=== PATIENT | male | born 1945 | race Caucasian/White ===

== ENCOUNTER 2019-07-21 10:03 | Emergency (ER) | payer MEDICARE, SELFPAY ==
[2019-07-21 10:05] VITALS: BP 145/113; PULSE 55; RESP 18; TEMP 36.6; O2SAT 99
[2019-07-21] MEDS: PROPARACAINE 0.5% OPHTH SOL 1 DROPS EYE-LEFT (10:11)
[2019-07-21] MEDS: FLUORESCEIN 1 MG STRIP EYE-LEFT (10:16)
--- NOTE | 2019-07-21 10:28 | ED.EYEPROB ---
HPI - Eye Problem General Chief complaint: Eye Problems Stated complaint: LT EYE CANT OPEN Time Seen by Provider: 07/21/19 10:08 Source: patient Mode of arrival: Ambulatory Limitations: no limitations History of Present Illness HPI Narrative: Patient is a 74-year-old male who presents with left eye pain. He says he woke up this morning and had intense pain and can open his eye feels like something is in it. It was not crusted over he denies any visual changes. He has since had proparacaine in his left eye by nursing staff and it has dramatically improved. He denies any crusting over her symptoms last night chief complaint: eye pain and eye redness Onset (ago): minute(s) Onset description: sudden Duration: constant Location: left eye Eye Symptoms: pain and foreign body sensation Related Data Home Medications Medication Instructions Recorded Confirmed atorvastatin 10 mg PO BEDTIME 07/21/19 07/21/19 levothyroxine 50 mcg PO QAM 07/21/19 07/21/19 losartan-hydrochlorothiazide 1 tab PO QAM 07/21/19 07/21/19 Previous Rx's Medication Instructions Recorded polymyxin B sulf-trimethoprim 1 drop EYE-LEFT Q4HRWA 7 Days #10 07/21/19 ml Allergies Allergy/AdvReac Type Severity Reaction Status Date / Time No Known Drug Allergies Allergy Verified 07/21/19 10:15 Review of Systems Review of Systems Narrative: GENERAL: Denies chills,fever HEENT: See HPI RESPIRATORY: Denies dyspnea, cough, wheezing CARDIOVASCULAR: Denies chest pain, palpitations GASTROINTESTINAL: Denies nausea, vomiting MUSCULOSKELETAL: Denies extremity pain, injury SKIN: No rash, no laceration, no pruritus NEUROLOGIC: Denies weakness, dizziness, headache, numbness 8 point review of systems is negative except for those stated above and HPI Patient History Medical History High cholesterol (Acute) Hypertension (Acute) Hypothyroid (Acute) Social History Smoking Status: Former smoker Smoking Status: Former smoker alcohol intake frequency: 0-2 drinks per day Substance Use Type: does not use Exam Initial Vital Signs Initial Vital Signs: Vital Signs Temperature 97.8 F 07/21/19 10:05 Pulse Rate 55 L 07/21/19 10:05 Respiratory Rate 18 07/21/19 10:05 Blood Pressure 145/113 H 07/21/19 10:05 Pulse Oximetry 99 07/21/19 10:05 GENERAL: Well-appearing, well-nourished and in no acute distress. CARDIOVASCULAR: peripheral pulses in tact, cap refill <2 sec RESPIRATORY: No respiratory distress, speaks in full sentences without difficulty EXTREMITIES: Normal range of motion, no clubbing or edema. Neurovascularly intact NEUROLOGICAL: Cranial nerves II through XII grossly intact. Normal gait and speech. SKIN: Warm, dry, no petechiae, no rashes or lesions. Eyes Eyelids: eyelids normal Conjunctivae: conjunctivae normal Sclera: scleral abnormality left scleral injection diffuse Cornea: fluorescein used (No dye uptake) Course Orders Ordered: Discontinued Medications Fluorescein Sodium (Ful-Melany) 1 mg EYE-LEFT NOW ONE Stop: 07/21/19 10:14 Last Admin: 07/21/19 10:16 Dose: 1 mg Documented by: MEISENB Proparacaine HCl (Parcaine 0.5% Ophth Mimi) 1 drops EYE-LEFT NOW ONE Stop: 07/21/19 10:09 Last Admin: 07/21/19 10:11 Dose: 1 drop Documented by: MANDO Vital Signs Vital signs: Vital Signs - 8 hr 07/21/19 10:05 07/21/19 10:53 Temperature 97.8 F Pulse Rate 55 L 53 L Respiratory Rate 18 18 Blood Pressure 145/113 H Blood Pressure [Left Arm] 141/69 H Pulse Oximetry 99 93 MDM - Eye Problem MDM Narrative Medical decision making narrative: Eye was flushed with saline. No obvious foreign body noted no corneal abrasion. At this time will treat for conjunctivitis recommend Tylenol ibuprofen as needed for pain Discharge Plan Departure Patient Disposition: Home Clinical Impression: Acute conjunctivitis, left eye Qualifiers: Acute conjunctivitis type: unspecified Qualified Code(s): H10.32 - Unspecified acute conjunctivitis, left eye Discharge Date/Time: 07/21/19 11:32 Instructions: DI for Conjunctivitis Activity Restrictions/Additional Instructions: *You have been diagnosed with left eye conjunctivitis *What to do: At this time no foreign body is noted in the eye. Will treat you for infection at this time *Continue to take medications as directed Polymyxin drops *Follow up with your primary care provider in 2-3 days [and follow up with ortho, urology etc] *Return to ER if you should have [such as] [or] any new, worsening or concerning symptoms Prescriptions: New polymyxin B sulf-trimethoprim 10,000 unit- 1 mg/mL drops 1 drop EYE-LEFT Q4HRWA 7 Days Qty: 10 RF: 0 No Action atorvastatin 10 mg tablet 10 mg PO BEDTIME RF: 0 levothyroxine 50 mcg tablet 50 mcg PO QAM RF: 0 losartan-hydrochlorothiazide 50-12.5 mg tablet 1 tab PO QAM RF: 0
[2019-07-21 10:53] VITALS: BP 141/69; PULSE 53; RESP 18; O2SAT 93
== END 2019-07-21 11:32 | disposition home or self-care (01) ==
PROVIDERS: Emergency Provider Emergency Medicine
DX: H10.32 Unspecified acute conjunctivitis, left eye (principal)
CPT/HCPCS: 99283

== ENCOUNTER → 2019-11-22 10:23 | Outpatient (CLI) | payer MEDICARE, SELFPAY ==
[2019-11-22 11:56] LABS: Aspartate Aminotransferase 21 IU/L (17-59); BUN Creatinine Ratio 17.2 (6-22); Blood Urea Nitrogen 17 mg/dL (9-20); Carbon Dioxide 30 mmol/L (22-32); Chloride 102 mmol/L (98-107); Cholesterol 156 mg/dL (140-199); Estimated Glomerular Filt Rate > 60.0 mL/min (>60); Glucose 97 mg/dL (80-110); HDL Cholesterol 39 mg/dL (40-60); HEMOLYSIS < 15 (0-50); LDL Cholesterol Calculated 85 mg/dL (<100); Potassium 3.8 mmol/L (3.4-5.1); Sodium 138 mmol/L (137-145); Triglycerides 160 mg/dL (35-150)
[2019-11-22 12:20] LABS: TSH w/ Reflex to FT4 2.17 uIU/mL (0.47-4.68)
[2019-11-22 12:25] LABS: Prostate Specific Antigen Scrn < 0.064 ng/mL (0.1-4.0)
== END ==
PROVIDERS: PCP Internal Medicine; Referring Provider Internal Medicine; Visit Provider Internal Medicine
DX: I10 Essential (primary) hypertension (principal); E78.2 Mixed hyperlipidemia; E03.9 Hypothyroidism, unspecified; C61 Malignant neoplasm of prostate; Z12.5 Encounter for screening for malignant neoplasm of prostate
CPT/HCPCS: 36415; 80048; 80061; 84443; 84450; G0103

== ENCOUNTER → 2020-04-18 13:49 | Outpatient (CLI) | payer MEDICARE, SELFPAY ==
[2020-04-20 02:07] LABS: COVID19 Sendout Not Detected (Not Detect)
== END ==
PROVIDERS: PCP Internal Medicine; Visit Provider Student in an Organized Health Care Education/Training Program
DX: Z11.59 Encounter for screening for other viral diseases (principal)
CPT/HCPCS: 87635

== ENCOUNTER → 2020-11-17 18:40 | Outpatient (ROUT) | payer MEDICARE, SELFPAY ==
[2020-11-17 19:29] LABS: HEMOLYSIS < 15 (0-50); Potassium 3.8 mmol/L (3.4-5.1)
[2020-11-17 19:30] LABS: Aspartate Aminotransferase 26 IU/L (17-59); BUN Creatinine Ratio 16.7 (6-22); Blood Urea Nitrogen 17 mg/dL (9-20); Calcium 9.7 mg/dL (8.4-10.2); Carbon Dioxide 29 mmol/L (22-32); Chloride 102 mmol/L (98-107); Cholesterol 189 mg/dL (140-199); Estimated Glomerular Filt Rate > 60.0 mL/min (>60); Glucose 81 mg/dL (80-110); HDL Cholesterol 51 mg/dL (40-60); LDL Cholesterol Calculated 92 mg/dL (<100); Sodium 137 mmol/L (137-145); Triglycerides 232 mg/dL (35-150)
[2020-11-17 20:03] LABS: Prostate Specific Antigen < 0.064 ng/mL (0.10-4.00)
[2020-11-19 04:14] LABS: Testosterone 446 ng/dL (71.8-623)
== END ==
PROVIDERS: PCP Internal Medicine; Visit Provider Internal Medicine
DX: E29.1 Testicular hypofunction (principal); I10 Essential (primary) hypertension; E78.2 Mixed hyperlipidemia; Z85.46 Personal history of malignant neoplasm of prostate
CPT/HCPCS: 80048; 80061; 84153; 84403; 84450

== ENCOUNTER → 2022-02-18 06:36 | Outpatient (CLI) | payer OTHER, SELFPAY ==
--- NOTE | 2022-02-18 | DI.US.S_ITS ---
PROCEDURE: US ABD AORTA ANEURYSM SCREEN INDICATIONS: FORMER SMOKER/SCREENING TECHNIQUE: Real time scanning was performed of the aorta and iliac arteries, with image documentation. COMPARISON: None. FINDINGS: Aorta: Proximal aortic diameter measures 1.5 x 1.7 cm. Mid-aorta measures 1.6 x 1.9 cm. Distal aortic diameter is 1.7 x 1.8 cm. Iliac arteries: Right common iliac artery measures 1.3 x 0.9 cm. Left common iliac artery measures 0.9 x 1.1 cm. IMPRESSION: Normal caliber abdominal aorta and iliac arteries. Dictated by: Kvng Cuellar M.D. on 02/18/2022 at 8:36 Approved by: Kvng Cuellar M.D. on 02/18/2022 at 8:39
== END ==
PROVIDERS: PCP Internal Medicine; Referring Provider Internal Medicine; Visit Provider Internal Medicine
DX: Z13.6 Encounter for screening for cardiovascular disorders (principal); Z87.891 Personal history of nicotine dependence
CPT/HCPCS: 76706

== ENCOUNTER → 2023-03-07 08:44 | Outpatient (CLI) | payer OTHER, SELFPAY ==
--- NOTE | 2023-03-07 | DI.US.S_ITS ---
PROCEDURE: US ABDOMEN LIMITED INDICATIONS: LEFT GROIN PROTRUSION TECHNIQUE: Left inguinal soft tissue ultrasound was obtained COMPARISON: None. FINDINGS: At the area of concern, there is a left inguinal hernia arising from a 1.2 cm fascial defect. Hernia contains bowel seen bowel, and the hernia sac measures overall 6.7 x 2.0 x 5.8 cm. IMPRESSION: Large right inguinal hernia containing peristalsing bowel Approved by: Raji Marin M.D. on 03/07/2023 at 18:27
== END ==
PROVIDERS: PCP Student in an Organized Health Care Education/Training Program; Referring Provider Student in an Organized Health Care Education/Training Program; Visit Provider Student in an Organized Health Care Education/Training Program
DX: K40.90 Unilateral inguinal hernia, without obstruction or gangrene, not specified as recurrent (principal); R19.09 Other intra-abdominal and pelvic swelling, mass and lump
CPT/HCPCS: 76705

== ENCOUNTER 2023-03-28 11:10 | Day surgery (SDC) | payer OTHER, SELFPAY ==
[2023-03-21 13:23] VITALS: BMI 29.4
[2023-03-28 11:42] VITALS: BMI 28.7
[2023-03-28 11:47] VITALS: BP 174/76; PULSE 95; RESP 16; TEMP 36.7; O2SAT 95
[2023-03-28] MEDS: LACTATED RINGERS 1,000 ML 42 ML IV ×2 (11:50→14:37)
--- NOTE | 2023-03-28 13:11 | PM.PREOP ---
Pre-operative Note COVID-19 COVID-19 status: Not tested Interval Note History & Physical reviewed/Exam performed by Physician: Yes Changes to H&P: No ASA Class (for procedural sedation): II
[2023-03-28] MEDS: CEFAZOLIN 2 GM/100 ML PREMIX 100 ML IV (13:44)
--- NOTE | 2023-03-28 13:55 | SUR.OPER ---
Supine on padded OR bed, head on pillow, arms secured on padded arm boards at <90 degrees abduction, legs uncrossed, safety belt at thigh, tape over blanket over lower legs.
[2023-03-28] MEDS: BUPIVACAINE 0.5% (PF) 30 ML, EPINEPHrine 0.15 MG INJ (14:00)
--- NOTE | 2023-03-28 14:56 | PM.OP.1 ---
Operative Date/Time/Diagnoses Date of procedure: 03/28/23 Time of procedure: 14:56 Pre-op diagnosis: Left inguinal hernia Post-op diagnosis: same Procedure & Clinicians Procedure: Open left inguinal hernia repair with mesh Same procedure as scheduled: Yes Surgeon: Claudio Sewell Supervisor [employer] Construction: Fortino Olivo Anesthesia Type: General Operative Notes Procedure in detail: Preoperative antibiotic was administered. The patient was brought to the operating room and placed on the table in supine position general anesthesia was induced. The left groin was prepped and draped in the normal fashion and a time-out was performed. Roughly 10 mL of local anesthetic were injected into the skin and subcutaneous adipose tissue over the left groin. A 5 cm incision was made over the left inguinal canal. Dissection was carried down through the subcutaneous adipose tissue. A bridging vein was cauterized. We exposed the external oblique aponeurosis in the direction of the fibers. Additional local was injected deep to the aponeurosis. A 15 blade scalpel was used to britton the external oblique aponeurosis. Metzenbaum scissors were used to carefully open the aponeurosis in the direction of the fibers taking care not to injure the underlying ilioinguinal nerve. We completely exposed the inguinal canal. The cord was dissected free from the inguinal ligament and floor of the inguinal canal and the external oblique aponeurosis was dissected off of the internal oblique taking care not to injure the hypogastric nerve. We encircled the cord with a [place] drain for retraction. There was a rather large indirect hernia that was dissected off of the cord structures and reduced with the aid of Trendelenburg and relaxation. We placed a polypropylene mesh over the inguinal canal floor. The mesh was secured with multiple interrupted 3-0 Prolene sutures to the pubic tubercle and shelving edge of the inguinal ligament as well as to the conjoint tendon medially. We overlapped the tails to recreate an internal ring and secured the medial tail to the inguinal ligament with additional sutures. We injected some more local into the fatty tissue in the inguinal canal and cord. Finally, we removed the [place] drain and closed the external oblique fascia with a running 3-0 Vicryl suture. Skin was closed with interrupted 3-0 Vicryl dermal sutures and a running 4 Monocryl subcuticular stitch. EBL 5 mL The patient was awakened and brought to recovery room. Post-operative Condition: stable Disposition: PACU
[2023-03-28 14:58] VITALS: BP 135/66; PULSE 60; RESP 13; O2SAT 95
[2023-03-28 15:03] VITALS: BP 123/60; PULSE 61; RESP 13; O2SAT 94
[2023-03-28 15:08] VITALS: BP 133/57; PULSE 62; RESP 14; O2SAT 95
[2023-03-28] MEDS: KETOROLAC 30 MG/ML VIAL IV (15:10)
[2023-03-28] MEDS: OXYCODONE IR 5 MG TABLET PO (15:12)
[2023-03-28 15:13] VITALS: BP 139/66; PULSE 59; RESP 13; O2SAT 98
[2023-03-28 15:25] VITALS: BP 137/67; PULSE 60; RESP 13; O2SAT 96
== END 2023-03-28 15:44 | disposition home or self-care (01) ==
PROVIDERS: PCP Student in an Organized Health Care Education/Training Program; Referring Provider Surgery; Visit Provider Surgery
PROC: (CPT 49505; principal; 2023-03-28 12:15)
DX: K40.90 Unilateral inguinal hernia, without obstruction or gangrene, not specified as recurrent (principal)
CPT/HCPCS: 49505; J0171; J0690; J1100; J1885; J2405; J2704; J3010

== ENCOUNTER → 2023-09-22 14:35 | Outpatient (CLI) | payer MEDICARE, SELFPAY ==
--- NOTE | 2023-09-22 14:37 | DI.US.S_ITS ---
PROCEDURE: US ABDOMEN LIMITED INDICATIONS: Left groin pain, S/P inguinal hernia repair TECHNIQUE: Real-time focused scanning was performed of the inguinal region, with image documentation. COMPARISON: [facility], , US ABDOMEN LIMITED, 03/07/2023, 9:07. FINDINGS: Ultrasound was performed in the area of interest along the left groin. No left groin hernia is identified. IMPRESSION: No recurrent hernia is identified. Dictated by: Christian Hinson M.D. on 09/23/2023 at 7:17 Approved by: Christian Hinson M.D. on 09/23/2023 at 8:19
== END ==
PROVIDERS: PCP Student in an Organized Health Care Education/Training Program; Referring Provider Student in an Organized Health Care Education/Training Program; Visit Provider Student in an Organized Health Care Education/Training Program
DX: R10.32 Left lower quadrant pain (principal)
CPT/HCPCS: 76705